=== PATIENT | female | born 1960 ===

== ENCOUNTER 2024-09-09 06:44 | Day surgery (SDC) | payer OTHER, SELFPAY ==
[2024-08-30 09:06] LABS: Hemoglobin 13.5 g/dL (12.0-16.0); Mean Corp Hgb Conc. 32.9 g/dL (33.0-37.0); Mean Corpuscular Hgb 30.2 pg (27.0-31.0); Mean Corpuscular Volume 91.7 fL (81.0-99.0); Mean Platelet Volume 10.4 fL (7.4-10.4); Platelet Count 313 10^3/uL (130-400); Red Blood Cell Count 4.47 10^6/uL (4.20-5.40); Red Cell Dist. Width 14.6 % (11.5-14.5); White Blood Cell Count 6.5 10^3/uL (4.8-10.8)
[2024-08-30 10:41] LABS: Blood Urea Nitrogen 26 mg/dl (7-17); Calcium 9.1 mg/dl (8.4-10.2); Carbon Dioxide 29 mmol/L (22-30); Chloride 101 mmol/L (98-107); Glucose 92 mg/dl (70-99); Potassium 4.4 mmol/L (3.5-5.1); Sodium 138 mmol/L (135-145); eGFR > 60.00
[2024-08-30 12:57] VITALS: BMI 26.8
[2024-09-09] VITALS (10 sets, daily range): BP systolic 98–128; BP diastolic 46–67; BMI 26.8
[2024-09-09] MEDS: NORMOSOL-R/PLASMALYTE-A 1000 IV (07:45)
[2024-09-09] MEDS: Pyridium 200 MG PO (07:45)
[2024-09-09] MEDS: SUBLIMAZE 25 MCG IV (09:38)
--- NOTE | 2024-09-09 09:43 | SUR.PHASEI ---
c/o headache and perineal soreness with catheter -12/05; frowning. Fentanyl 25mcg given IV for same - sleeping
== END 2024-09-09 13:25 | disposition home or self-care (01) ==
LOC: SDS 06:44
PROVIDERS: ATTENDING PHYSICIAN Obstetrics & Gynecology
DX: N39.3 Stress incontinence (female) (male) (principal); N36.41 Hypermobility of urethra
CPT/HCPCS: 57288; 36415; 80048; 85027; 93005; C1771